=== PATIENT | male | born 1965 | race Caucasian/White ===

== ENCOUNTER 2018-04-21 09:04 | Emergency (ER) | payer BC ==
[~2018-04-21] VITALS: Ht 170.2 cm; Wt 149.5 kg
[~2018-04-21 09:04] MED LIST: ADDERALL XR20 MG PO; BENICAR20 MG PO; CELEBREX200 MG PO; ZITHROMAX250 MG PO
[2018-04-21 09:51] LABS: HEMATOCRIT 43.6 % (38.0-50.0); HEMOGLOBIN 15.1 G/DL (12.5-16.6); MCH 30.8 PG (29.0-34.0); MCHC 34.6 G/DL (30.0-36.0); PLATELET COUNT 255 K/uL (156-360); RBC DIS.WIDTH-SD 42.3 % (39-53); WHITE BLOOD COUNT 13.9 K/uL (4.1-10.2)
[2018-04-21 10:00] LABS: ALBUMIN 4.2 g/dL (3.2-4.8); CHLORIDE 106 mEq/L (99-109); POTASSIUM 4.5 mEq/L (3.7-5.4); SODIUM 139 mEq/L (136-147)
[2018-04-21 10:03] LABS: GLUCOSE 109 mg/dL (70-99); TOTAL PROTEIN 7.1 g/dL (6.4-8.3)
[2018-04-21 10:05] LABS: TOTAL BILIRUBIN 0.6 mg/dL (0.0-1.0)
[2018-04-21 10:06] LABS: ALKALINE PHOSPHATASE 63 IU/L (3-129); CREATININE 1.3 mg/dL (0.6-1.3); GFR ESTIMATE (CALCULATED) > 59 mL/min/ (58.99-99999)
[2018-04-21 10:07] LABS: UREA NITROGEN (BUN) 21 mg/dL (9-23)
[2018-04-21 10:08] LABS: AST (GOT) 20 IU/L (2-34)
[2018-04-21 10:09] LABS: ALT (GPT) 32 IU/L (3-49)
[2018-04-21 10:10] LABS: LIPASE 31 U/L (1.0-51.0)
[2018-04-21 10:50] LABS: APPEARANCE CLEAR ((CLEAR)); BILIRUBIN NEGATIVE; BLOOD NEGATIVE; COLOR STRAW ((YELLOW)); GLUCOSE (STRIP) NEGATIVE; KETONES NEGATIVE; LEUKOCYTES NEGATIVE; NITRITE NEGATIVE; PROTEIN (STRIP) NEGATIVE; SPECIFIC GRAVITY 1.012 (1.000-1.030); UCUL ADDED? NO; UROBILINOGEN 0.2 MG/DL (0.2-1.0)
[2018-04-21] MEDS ORDERED: PERCOCET 5/31 TABLET PO (12:54)
[2018-04-21] MEDS ORDERED: MOTRIN800 MG PO (12:54)
[2018-04-21] MEDS ORDERED: ZOFRAN4 MG PO (12:54)
[2018-04-21] MEDS ORDERED: FLOMAX0.4 MG PO (12:54)
[2018-04-21 13:28] VITALS: BP 146/94
== END 2018-04-21 13:29 | disposition home or self-care (01) ==
LOC: EME 09:04
DX: N20.1 Calculus of ureter (principal); D72.829 Elevated white blood cell count, unspecified; I10 Essential (primary) hypertension; M19.90 Unspecified osteoarthritis, unspecified site; Z87.442 Personal history of urinary calculi
CPT/HCPCS: 74177; 80053; 81003; 83690; 85027; J1885; J2765; J7030